=== PATIENT | female | born 1980 | race Caucasian/White ===

== ENCOUNTER 2024-10-16 11:30 | Emergency (ER) | payer SELFPAY ==
[~2024-10-16] VITALS: Ht 175.3 cm; Wt 70.0 kg
[~2024-10-16 11:30] MED LIST: CIPRO500 MG PO; NORCO 5-325 TA1 EACH PO
[2024-10-16] MEDS ORDERED: ONDANSETRON 4 MG TAB ODT SL ONE (12:15)
[2024-10-16] MEDS ORDERED: OXYCODONE/APAP 5/325 TAB PO ONE (12:15)
[2024-10-16] MEDS ORDERED: CEPHALEXIN500 M1 PO (13:04)
[2024-10-16] MEDS ORDERED: CEPHALEXIN MONOHYDRATE 500 MG CAP PO ONE (13:15)
[2024-10-16 13:27] VITALS: BP 116/82
[2024-10-16] MEDS ORDERED: CEPHALEXIN MONOHYDRATE 500 MG HOME.PACK PO ONE (16:30)
== END 2024-10-16 13:28 | disposition home or self-care (01) ==
LOC: ED 11:30
DX: L03.115 Cellulitis of right lower limb (principal)
CPT/HCPCS: 73630; 99283; A9270

== ENCOUNTER 2024-10-30 16:02 | Emergency (ER) | payer SELFPAY ==
[~2024-10-30] VITALS: Ht 175.3 cm; Wt 68.0 kg
[~2024-10-30 16:02] MED LIST changes: +CEPHALEXIN500 M1 PO
--- OUTSIDE RECORDS SUMMARY | 2024-10-30 16:09 | XMS ---
PreManage Notification: WALTER TALBERT Security Dishwasher Busser Events No recent Security Events currently on file CRITERIA MET - [facility] - 2 Visits in 30 Days CARE PROVIDERS There are no care providers on record at this time. Lydia has no Care Guidelines for this patient. [facility]12 MO[facility] NOTE: Visits indicate total known visits. ED/C VISIT TRACKING (12 MO.) [facility] COMPLAINT: - RT FOOT PAIN/INJURY 10/16/2024 11:[address] [facility] TYPE: Emergency COMPLAINT: - RT FOOT INJURY DIAGNOSES: - Cellulitis of right lower limb - Pain in right foot INPATIENT VISIT TRACKING (12 MO.) No inpatient visits to display in this time frame [email or web address]
[2024-10-30] MEDS ORDERED: PROBIOTIC1 EAC8 PO (16:22)
[2024-10-30] MEDS ORDERED: CEPHALEXIN MONOHYDRATE 500 MG CAP PO ONE (17:15)
[2024-10-30] MEDS ORDERED: HYDROCODONE BIT/ACETAMINOPHEN 5/325 MG 1 TAB HOME.PACK PO ONE (17:15)
[2024-10-30] MEDS ORDERED: HYDROCODONE/ACETA 5/325 TAB PO ONE (17:15)
[2024-10-30] MEDS ORDERED: TRIMETHOPRIM/SULFAMETHOXAZOLE 1 EA TAB PO ONE (17:15)
[2024-10-30] MEDS ORDERED: TRIMETHOPRIM/SULFAMETHOXAZOLE 1 EA HOME.PACK PO ONE (17:15)
[2024-10-30] MEDS ORDERED: ONDANSETRON 4 MG TAB ODT SL ONE (17:15)
[2024-10-30] MEDS ORDERED: FLUCONAZOLE150 MG PO (17:21)
[2024-10-30] MEDS ORDERED: ONDANSETRON ODT4 MG PO (17:21)
[2024-10-30] MEDS ORDERED: HYDROCODON-ACE1 EA10 PO (17:21)
[2024-10-30] MEDS ORDERED: BACTRIM DS TAB1 EACH PO (17:21)
[2024-10-30] MEDS ORDERED: CEPHALEXIN500 M1 PO (17:21)
[2024-10-30 17:40] VITALS: BP 152/104
== END 2024-10-30 17:42 | disposition home or self-care (01) ==
LOC: ED 16:02
DX: L03.115 Cellulitis of right lower limb (principal); Z79.2 Long term (current) use of antibiotics
CPT/HCPCS: 99283; A9270